=== PATIENT | male | born 1940 | race Caucasian/White ===

== ENCOUNTER → 2018-12-27 | Outpatient (CLI) | payer MEDICARE, BC ==
[~2018-12-27] MED LIST: ATROPINE SULFATE 0.1 MG/ML 10ML SYRINGE ONE; DOBUTamine DRIP for NUC MED 500 MG in DEXTROSE/WATER 1 250ML.BAG IV ONE
--- NOTE | 2018-12-27 09:29 | US ---
EXAMINATION TYPE: US carotid duplex BILAT DATE OF EXAM: 12/27/2018 COMPARISON: NONE CLINICAL HISTORY: R07.89 Chest Pain. Pt states dizziness EXAM MEASUREMENTS: RIGHT: Peak Systolic Velocity (PSV) cm/sec ----- Right CCA: 66.0 ----- Right ICA: 114.1 ----- Right ECA: 274.9 ICA/CCA ratio: 1.7 RIGHT: End Diastole cm/sec ----- Right CCA: 9.3 ----- Right ICA: 31.7 ----- Right ECA: 0.0 LEFT: Peak Systolic Velocity (PSV) cm/sec ----- Left CCA: 53.2 ----- Left ICA: 155.0 ----- Left ECA: 105.3 ICA/CCA ratio: 2.9 LEFT: End Diastole cm/sec ----- Left CCA: 9.7 ----- Left ICA: 32.7 ----- Left ECA: 0.0 VERTEBRALS (direction of flow): Right Vertebral: Antegrade Left Vertebral: Antegrade Rhythm: Normal IMPRESSION: Stenosis of the right internal carotid artery and left internal carotid artery estimated at 50-69% as well as within the external carotid arteries. CTA neck could more accurately assess the degree of st enosis. Criteria for Assigning % of Stenosis / Diameter reduction (Estimation based on the indirect measurements of the internal carotid artery velocities (ICA PSV). 1. Normal (no stenosis)=ICA PSV < 125 cm/s: ratio < 2.0: ICA EDV<40 cm/s. 2. Less than 50% stenosis=ICA PSV < 125 cm/s: ratio < 2.0: ICA EDV<40 cm/s. 3. 50 to 69% stenosis=ICA PSV of 125 to 230 cm/s: ration 2.0 ? 4.0: ICA EDV 40-100 cm/s. 4. Greater than 70% stenosis to near occlusion= ICA PSV > 230 cm/s: ratio > 4.0: ICA EDV > 100 cm/s. 5. Near occlusion= ICA PSV velocities may be low or undetectable: variable ratio and ICA EDV. 6. Total occlusion=unable to detect flow.
--- NOTE | 2018-12-27 11:08 | ECHOS ---
STRESS ECHOCARDIOGRAM INDICATIONS: Chest pain. BASELINE HEART RATE: 56 BASELINE BLOOD PRESSURE: 124/58 MAXIMUM HEART RATE: 104 MAXIMUM BLOOD PRESSURE: 211/44 85% MPHR: 119 100% MPHR: 140 MAXIMUM STAGE REACHED: 5 TOTAL EXERCISE TIME: 12:45 CLINICAL INFORMATION: An 78-year-old male patient who underwent a dobutamine stress echo, chest pain evaluation. Baseline heart rate 56 beats per minute. Baseline blood pressure 124/58 mmHg. Baseline 12-lead ECG shows normal sinus rhythm with normal cardiac intervals. Patient received dobutamine infusion per protocol. Peak heart rate 104 beats per minute. He did take his atenolol this morning. Mildly hypertensive response to exercise. Peak blood pressure 211/44 mmHg. With dobutamine infusion there was a [address]-depression noted inferolaterally. This was a horizontal downsloping ST depression. No arrhythmias noted. The baseline 2D echo images were suboptimal therefore Definity contrast was used to delineate the LV endocardial borders. With dobutamine there was a stepwise increment in overall LV contractility without development of any wall motion abnormalities. At recovery, regional global LV systolic function remained normal. IMPRESSION: 1. Abnormal ECG response to dobutamine infusion. 2. No commensurate echocardiographic evidence for ischemia noted. MMODL / IJN: [id number] /
== END ==
LOC: RADUSMAIN 08:31
PROVIDERS: ATTEND Family Medicine
DX: I65.23 Occlusion and stenosis of bilateral carotid arteries (principal); R94.31 Abnormal electrocardiogram [ECG] [EKG]
CPT/HCPCS: 93880; C8930; J1250; Q9950; 93351